=== PATIENT | male | born 1995 | race Two or more races ===

== ENCOUNTER 2016-11-11 13:44 | Emergency (ER) | payer SELFPAY ==
[2016-11-11 13:50] VITALS: BP 141/61
--- NOTE | 2016-11-11 14:32 | ER Document Report ---
ED Skin Rash/Insect Bite/Abscs - General Chief Complaint: Rash Stated Complaint: RASH,ITCHING Time Seen by Provider: 11/11/16 14:12 Mode of Arrival: Ambulatory Information source: Patient Notes: 21-year-old male presents to ED for exposure to poison oak. He has a rash to bilateral arms legs chest and abdomen. He states he has been using calamine lotion but has not been using Benadryl or any antihistamines. He states he has only been using calamine lotion. TRAVEL OUTSIDE OF THE [place] IN LAST 30 DAYS: No - HPI Patient complains to provider of: Other - Rash to bilateral arms legs chest and abdomen not severe minimal she states it itches very bad. Denies pain no redness or inflammation Onset: Other - 4 days Onset/Duration: Gradual Quality of pain: No pain Severity: None Pain Level: Denies Skin Character: Other - A itchy rash from poison oak to the arms legs chest and back Quality of rash: Itchy Identify cause: Yes - Heat patient states poison oak Exacerbated by: Denies Relieved by: Denies Similar symptoms previously: Yes Recently seen / treated by doctor: No - Related Data Allergies/Adverse Reactions: No Known Allergies Allergy (Verified 11/11/16 13:48) Past Medical History - General Information source: Patient - Social History Smoking Status: Never Smoker Cigarette use (# per day): No Chew tobacco use (# tins/day): No Smoking Education Provided: No Frequency of alcohol use: None Drug Abuse: None Occupation: Construction Lives with: Spouse/Significant other Family History: Arthritis, DM, Hypertension Patient has suicidal ideation: No Patient has homicidal ideation: No - Past Medical History Cardiac Medical History: Reports: Hx Hypertension Pulmonary Medical History: Reports: None EENT Medical History: Reports: None Neurological Medical History: Reports: None Endocrine Medical History: Reports: None Renal/ Medical History: Reports: None Malignancy Medical History: Reports None GI Medical History: Reports: None Musculoskeltal Medical History: Reports None Skin Medical History: Reports None Psychiatric Medical History: Reports: Hx Attention Deficit Hyperactivity Disorder, Hx Bipolar Disorder Traumatic Medical History: Reports: None Infectious Medical History: Reports: None Surgical Hx: Negative Past Surgical History: Reports: None - Immunizations Hx Diphtheria, Pertussis, Tetanus Vaccination: Yes Review of Systems - Review of Systems Constitutional: No symptoms reported EENT: No symptoms reported Cardiovascular: No symptoms reported Respiratory: No symptoms reported Gastrointestinal: No symptoms reported Genitourinary: No symptoms reported Male Genitourinary: No symptoms reported Musculoskeletal: No symptoms reported Skin: Rash Hematologic/Lymphatic: No symptoms reported Neurological/Psychological: No symptoms reported -: Yes All other systems reviewed and negative Physical Exam - Vital signs Vitals: Temp Pulse Resp BP Pulse Ox 97.7 F 58 L 14 141/61 H 98 11/11/16 13:49 11/11/16 13:49 11/11/16 13:49 11/11/16 13:49 11/11/16 13:49 Interpretation: Normal - General General appearance: Appears well, Alert - HEENT Head: Normocephalic, Atraumatic Eyes: Normal Pupils: PERRL - Respiratory Respiratory status: No respiratory distress Chest status: Nontender Breath sounds: Normal Chest palpation: Normal - Cardiovascular Rhythm: Regular Heart sounds: Normal auscultation Murmur: No - Abdominal Inspection: Normal Distension: No distension Bowel sounds: Normal Tenderness: Nontender Organomegaly: No organomegaly - Back Back: Normal, Nontender - Extremities General upper extremity: Normal inspection, Nontender, Normal color, Normal ROM , Normal temperature General lower extremity: Normal inspection, Nontender, Normal color, Normal ROM , Normal temperature, Normal weight bearing. No: Jordi's sign - Neurological Neuro grossly intact: Yes Cognition: Normal Orientation: AAOx4 Marc Coma Scale Eye Opening: Spontaneous Marc Coma Scale Verbal: Oriented [place] Coma Scale Motor: Obeys Commands [place] Coma Scale Total: 15 Speech: Normal Motor strength normal: LUE, RUE, LLE, RLE Sensory: Normal - Psychological Associated symptoms: Normal affect, Normal mood - Skin Skin Temperature: Warm Skin Moisture: Dry Skin Color: Normal Skin irregularity: Rash Location of irregularity: Abdomen, Chest, Back, Extremities Character of irregularity: Other - itchy red fine Course - Re-evaluation Re-evalutation: 11/11/16 14:51 Patient instructed in use of antihistamines, Pepcid, Caladryl lotion, and over- the-counter hydrocortisone. Patient to follow-up with primary doctor for any other complaints. - Vital Signs Vital signs: Temp Pulse Resp BP Pulse Ox 97.7 F 58 L 14 141/61 H 98 11/11/16 13:49 11/11/16 13:49 11/11/16 13:49 11/11/16 13:49 11/11/16 13:49 Discharge - Discharge Clinical Impression: Poison oak dermatitis Condition: Stable Disposition: HOME, SELF-CARE Instructions: Family Physicians / Practices Additional Instructions: [email or web address] Poison Melanie Poison melanie and poison oak can cause an itchy rash. This is called contact dermatitis. It's an allergy to an oil in the plant's leaves. The oil can be spread from clothing to skin, from pets to humans, or from one spot on the body to another. Washing thoroughly with soap immediately after exposure can prevent the rash. (Clothing should be washed as well.) If the oil is not removed, an itchy rash develops a few days after the exposure. Blisters may develop. Two to three weeks may be required for healing. Generally, treatment consists of: (1) an immediate thorough washing with soap to remove the oil, (2) application of a cortisone cream, and (3) antihistamines for itching. If the reaction is particularly severe, oral cortisone medicine may be required. If there are oozing areas, these can be soaked in epsom salts or Ravindra's solution. Call the doctor if the rash worsens despite treatment, or if signs of infection occur such as spreading redness, red streaks, swollen glands, swelling , or fever. STEROID MEDICATION: You have been given a medicine of the cortisone/steroid class. This medication is used to control inflammation or allergy. It is usually only given for a short period of time, until the acute process subsides. There are usually no side effects from short-term use of cortisone-like medications. Some persons feel an increased sense of well-being and are not sleepy at bedtime. Long-term use of cortisone medications is best avoided, unless required for a severe condition. If your condition does not remit, or relapses after the course of corticosteroid medication, you should consult your physician. ACID-SUPPRESSING MEDICATION: You have a prescription for medicine which reduces the stomach's secretion of acid. Examples include Zantac, Tagament, and Pepcid. These drugs are often used to allow healing of ulcers or esophagitis. They may be needed to prevent recurrence of ulcers in some patients, or to prevent damage from acid reflux in the esophagus. Take all medication as prescribed, even after the pain is gone. Regular antacids may be added as needed if you have symptoms while taking this medicine. These medications sometimes are prescribed for allergic reactions because they have anti-histaminic effects and relieve the rash and itching of the reaction. There are usually no side effects from this medication. But, in rare cases and particularly in the elderly, serious problems can occur. Contact your doctor if there is fever, rash, hallucinations, confusion, or unusual bruising. Contact your doctor at once if you develop lightheadedness, black or bloody stool, or bloody vomitus. ANTIHISTAMINES: An antihistamine has been given and/or prescribed to control your symptoms. Antihistamines are used for many reasons, including itching, watering eyes, runny nose, allergic swelling, hives, and insect stings. Antihistamines may cause drowsiness, especially with the first dose. Do not operate machinery or drive while under the effects of the medication. Other common side effects include dry mouth and eyes. In older persons, antihistamines can occasionally cause urinary retention, constipation, and trouble focusing the eyes. Do not combine the medication with alcohol, or with any other medication without talking to your doctor. USE OF DIPHENHYDRAMINE: The use of diphenhydramine (Benadryl) has been recommended to control allergic symptoms. The 25 mg strength is available over- the-counter, as well as the elixir. This antihistamine is used for many symptoms. It's useful for itching, watering eyes and nose, allergic swelling, hives, and insect stings. The medication can be repeated four times daily. Age Elixir (12.5 mg/tsp) 25 mg pill 2-3 yr 1/2 tsp 4-8 yr 1 tsp 9-14 yr 2 tsp one tab adult 1-2 tabs Antihistamines may cause drowsiness, especially with the first dose. Do not operate machinery or drive while under the effects of the medication. Do not combine the medication with alcohol, or with any other medication without talking to your doctor. FOLLOW-UP CARE: If you have been referred to a physician for follow-up care, call the physician s office for an appointment as you were instructed or within the next two days. If you experience worsening or a significant change in your symptoms, notify the physician immediately or return to the Emergency Department at any time for re-evaluation. Prescriptions: Prednisone [Deltasone 10 mg Tablet] 10 mg PO ASDIR PRN #21 tablet PRN Reason: Forms: Elevated Blood Pressure
== END 2016-11-11 14:40 | disposition home or self-care (01) ==
LOC: ER 13:44
DX: L25.5 Unspecified contact dermatitis due to plants, except food (principal); R21 Rash and other nonspecific skin eruption
CPT/HCPCS: 99282

== ENCOUNTER 2017-03-17 20:25 | Emergency (ER) | payer SELFPAY ==
--- NOTE | 2017-03-17 20:40 | ER Document Report ---
ED Psych Disorder / Suicide - General Chief Complaint: Psych Problem Stated Complaint: SUICIDAL IDEATIONS Time Seen by Provider: 03/17/17 20:39 Notes: 21-year-old male history of depression. Used to be on several medications. Has not taken anything in a long time. Has been having increased thoughts of suicide. I thought about hanging himself in the past. Was admitted to mental health hospital in the past. States that he has lost his Medicaid as well as his disability. Has not been able to get his medications refilled. Can get an appointment with the doctor because he does not have any money. Admits to self- medicating with marijuana TRAVEL OUTSIDE OF THE [place] IN LAST 30 DAYS: No - HPI Patient complains to provider of: Suicidal ideation Onset was: Gradual Severity: Moderate - Related Data Allergies/Adverse Reactions: No Known Allergies Allergy (Verified 11/11/16 13:48) Past Medical History - General Information source: Patient - Social History Smoking Status: Current Every Day Smoker Cigarette use (# per day): Yes Frequency of alcohol use: None Drug Abuse: Marijuana Family History: Arthritis, DM, Hypertension - Past Medical History Cardiac Medical History: Reports: Hx Hypertension Renal/ Medical History: Denies: Hx Peritoneal Dialysis Psychiatric Medical History: Reports: Hx Attention Deficit Hyperactivity Disorder, Hx Bipolar Disorder - Immunizations Hx Diphtheria, Pertussis, Tetanus Vaccination: Yes Review of Systems - Review of Systems Constitutional: No symptoms reported EENT: No symptoms reported Cardiovascular: No symptoms reported Respiratory: No symptoms reported Gastrointestinal: No symptoms reported Genitourinary: No symptoms reported Male Genitourinary: No symptoms reported Musculoskeletal: No symptoms reported Skin: No symptoms reported Hematologic/Lymphatic: No symptoms reported Neurological/Psychological: See HPI, Depression, Suicidal ideation Physical Exam - Vital signs Vitals: Temp Pulse Resp BP Pulse Ox 98.1 F 87 18 144/73 H 98 03/17/17 20:32 03/17/17 20:32 03/17/17 20:32 03/17/17 20:32 03/17/17 20:32 Interpretation: Normal - General General appearance: Appears well, Alert Notes: In no major distress at this time. - HEENT Head: Normocephalic, Atraumatic Eyes: Normal Pupils: PERRL - Respiratory Respiratory status: No respiratory distress Chest status: Nontender Breath sounds: Normal Chest palpation: Normal - Cardiovascular Rhythm: Regular Heart sounds: Normal auscultation Murmur: No - Abdominal Inspection: Normal Distension: No distension Bowel sounds: Normal Tenderness: Nontender Organomegaly: No organomegaly - Back Back: Normal, Nontender - Extremities General upper extremity: Normal inspection, Nontender, Normal color, Normal ROM , Normal temperature General lower extremity: Normal inspection, Nontender, Normal color, Normal ROM , Normal temperature, Normal weight bearing. No: Jordi's sign - Neurological Neuro grossly intact: Yes Cognition: Normal Orientation: AAOx4 Marc Coma Scale Eye Opening: Spontaneous Marc Coma Scale Verbal: Oriented Marc Coma Scale Motor: Obeys Commands [place] Coma Scale Total: 15 Speech: Normal Motor strength normal: LUE, RUE, LLE, RLE Sensory: Normal - Psychological Associated symptoms: Normal affect, Normal mood - Skin Skin Temperature: Warm Skin Moisture: Dry Skin Color: Normal Course - Re-evaluation Re-evalutation: 03/17/17 21:39 This 21-year-old pleasant well-appearing male in no acute distress at this time. Reports not being on medications and has gotten worse. Patient wants to be on medications that will help with the suicidal ideations because he is tired of having these thoughts of wanting to . At this time patient is medically stable. Will place in observation overnight and have mental health see patient in the morning. - Vital Signs Vital signs: Temp Pulse Resp BP Pulse Ox 98.1 F 87 18 144/73 H 98 03/17/17 20:32 03/17/17 20:32 03/17/17 20:32 03/17/17 20:32 03/17/17 20:32 - Laboratory Result Diagrams: 03/17/17 21:06 03/17/17 21:06 Laboratory results interpreted by me: 03/17/17 03/17/17 03/17/17 20:41 21:06 21:06 WBC 11.3 H Absolute Neutrophils 8.3 H Potassium 3.5 L Glucose 112 H Total Protein 6.1 L Urine Urobilinogen 2.0 H Ur Leukocyte Esterase TRACE H Salicylates < 1.0 L Acetaminophen < 10 L Discharge - Discharge Clinical Impression: Depressive disorder, Suicidal ideation
[2017-03-17 21:12] LABS: ABSOLUTE BASOPHILS # (AUTO) 0.1 10^3/uL (0.0-0.2); ABSOLUTE EOSINOPHILS # (AUTO) 0.1 10^3/uL (0.0-0.6); ABSOLUTE LYMPHOCYTES (AUTO) 2.2 10^3/uL (0.5-4.7); ABSOLUTE MONOCYTES (AUTO) 0.6 10^3/uL (0.1-1.4); ABSOLUTE NEUT (AUTO) 8.3 10^3/uL (1.7-8.2); BASOPHILS % (AUTO) 0.9 % (0-2); EOSINOPHILS % (AUTO) 0.6 % (0-6); HEMATOCRIT 47.1 % (37.9-51.0); HEMOGLOBIN 16.3 g/dL (13.5-17.0); LYMPHOCYTES % (AUTO) 19.5 % (13-45); MEAN CORPUSCULAR HEMOGLOBIN 30.6 pg (27.0-33.4); MEAN CORPUSCULAR HGB CONC 34.6 g/dL (32.0-36.0); MEAN CORPUSCULAR VOLUME 89 fl (80-97); PLATELET COUNT 264 10^3/uL (150-450); RED BLOOD COUNT 5.31 10^6/uL (4.35-5.55); TOTAL CELLS COUNTED % (AUTO) 100 %; WHITE BLOOD COUNT 11.3 10^3/uL (4.0-10.5)
[2017-03-17 21:29] LABS: GLUCOSE 112 mg/dL (75-110)
[2017-03-17 21:30] LABS: ALANINE AMINOTRANSFERASE 46 U/L (21-72); ALBUMIN 4.2 g/dL (3.5-5.0); ALKALINE PHOSPHATASE 58 U/L (38-126); ANION GAP 9 (5-19); ASPARTATE AMINO TRANSFERASE 29 U/L (17-59); BILIRUBIN,DIRECT 0.1 mg/dL (0.0-0.4); BILIRUBIN,TOTAL 0.5 mg/dL (0.2-1.3); BLOOD UREA NITROGEN 16 mg/dL (7-20); CALCIUM 9.9 mg/dL (8.4-10.2); CARBON DIOXIDE 27 mmol/L (22-30); CHLORIDE 104 mmol/L (98-107); POTASSIUM 3.5 mmol/L (3.6-5.0); SODIUM 140.1 mmol/L (137-145); TOTAL PROTEIN 6.1 g/dL (6.3-8.2)
[2017-03-17 21:32] LABS: ACETAMINOPHEN < 10 ug/mL (10-30); ALCOHOL < 10 mg/dL (NONE DETECTED); SALICYLATE < 1.0 mg/dL (2.0-20.0)
[2017-03-17 22:05] LABS: APPEARANCE,URINE SLIGHTLY-CLOUDY; BILIRUBIN,URINE NEGATIVE (NEGATIVE); COLOR,URINE YELLOW; GLUCOSE, URINE NEGATIVE (NEGATIVE); KETONES,URINE NEGATIVE (NEGATIVE); LEUKOCYTE ESTERASE,URINE TRACE (NEGATIVE); NITRITE,URINE NEGATIVE (NEGATIVE); PROTEIN,URINE NEGATIVE (NEGATIVE)
[2017-03-17 22:21] LABS: URINE AMPHETAMINES SCREEN NEGATIVE; URINE BARBITURATES SCREEN NEGATIVE; URINE BENZODIAZEPINES SCREEN NEGATIVE; URINE COCAINE SCREEN NEGATIVE; URINE MARIJUANA (THC) SCREEN UNCONFIRMED POSITIVE; URINE METHADONE SCREEN NEGATIVE; URINE PHENCYCLIDINE SCREEN NEGATIVE
--- NOTE | 2017-03-17 23:09 | EKG REPORT ---
SEVERITY:- OTHERWISE NORMAL ECG - SINUS ARRHYTHMIA, RATE [id number] : Confirmed by: Mya Cao 17-Mar-2017 23:08:25
--- NOTE | 2017-03-18 11:01 | ER Document Report ---
Doctor's Note Notes: 03/18/17 11:00 Rounds: Chart reviewed and patient interviewed. Patient is being evaluated for depression and suicidal ideation. Says he has had these feelings for some time now. Does not have a suicidal plan. Patient is very polite. Vital signs are all normal. Lab studies were normal except for being positive marijuana on his drug screen. Patient appears to be medically stable for transfer or discharge. Redd Jules MD
--- NOTE | 2017-03-18 11:34 | PSYCHOLOGICAL NOTE ---
Psych Note - Psych Note Psych Note: Reason for Consult: Suicidal Ideation Consent Permissions : none Given 21-year-old male history of depression. Used to be on several medications. Has not taken anything in a long time. Has been having increased thoughts of suicide. I thought about hanging himself in the past. Was admitted to mental health hospital in the past. States that he has lost his Medicaid as well as his disability. Patient disclosed that he has been having suicidal thoughts for approximately 6 months however denies having a plan. He states that he did attempt last year " I put a rope on a tree but could not go through with it." Patient states that he has had one inpatient psychiatric treatment at [facility] approximately 4-5 years ago. Patient denies taking any medications for over 2 years; does not remember what medications he was taking. Patient states "I would like to start medication again." Patient describes having difficulty sleeping, reporting only 2-3 hours of sleep at night. Patient also has difficulty with anger at times and periods of times where he "sometimes have a hard time getting out of bed." Patient is alert and orientated to person, place, time and circumstance. Mood is euthymic with congruent affect. Patient endorses passive suicidal ideation i.e. no plans means or intent. Patient denies homicidal ideation. Delusions are absent behaviors congruent with intact reality based presentation i.e. organized, linear, rational thinking. Eye contact was well-maintained. Intellectual abilities appear to be within the average range. Conversational speech was within normal rate, tone and prosody. Attention and concentration were good. Insight, judgment, impulse control are good as evidenced by the patient coming in to the emergency department seeking assistance. 296.80 (F31.9) unspecified bipolar and related disorder Impression\\plan: Patient is considered psychiatrically clear. Patient does not meet IVC criteria per [place] GS 122C. Patient endorses passive suicidal ideation i.e. no plans means nor intent. Patient denies homicidal ideation. Delusions are absent behaviors congruent with intact reality based presentation i.e. organized, linear, rational thinking. Patient is requesting assistance in medication and continued services. Patient is recommended to follow-up with [facility] for his continued outpatient mental health treatment. Dr. Reaves was consulted and the care and management of this patient; attending physician is in agreement with recommendations and disposition.
[2017-03-18 13:16] VITALS: BP 126/76
== END 2017-03-18 13:21 | disposition home or self-care (01) ==
LOC: ER 20:25
DX: F31.9 Bipolar disorder, unspecified (principal); R45.851 Suicidal ideations; F17.210 Nicotine dependence, cigarettes, uncomplicated; F12.10 Cannabis abuse, uncomplicated; I10 Essential (primary) hypertension
CPT/HCPCS: 36415; 80053; 80307; 81001; 85025; 93005; 93010; 99285

== ENCOUNTER 2017-03-23 08:48 | Emergency (ER) | payer SELFPAY ==
--- NOTE | 2017-03-23 09:26 | ER Document Report ---
ED General - General Chief Complaint: Medication Refill Stated Complaint: MEDICATION REFILL Time Seen by Provider: 03/23/17 09:25 Mode of Arrival: Ambulatory Information source: Patient Notes: Patient is a 21-year-old male who presents requesting medication refill for his Depakote. He was seen here 5 days ago with passive suicidal ideations but he is denying any suicidal ideations homicidal ideations or hallucinations at this time. He states that he was discharged home from his previous visit and advised to follow-up outpatient. He has an appointment with an outpatient psychiatric provider on April 05 but he states that the time of his discharge from the emergency department he was only given 5 days worth of the Depakote. He states he is going to need some more until he can make his appointment on April 05. He is unsure of the dosage of the Depakote but states his pharmacy is [facility] on [address]. TRAVEL OUTSIDE OF THE [place] IN LAST 30 DAYS: No - Related Data Allergies/Adverse Reactions: No Known Allergies Allergy (Verified 11/11/16 13:48) Past Medical History - General Information source: Patient - Social History Smoking Status: Unknown if Ever Smoked Family History: Arthritis, DM, Hypertension - Past Medical History Cardiac Medical History: Reports: Hx Hypertension Renal/ Medical History: Denies: Hx Peritoneal Dialysis Psychiatric Medical History: Reports: Hx Attention Deficit Hyperactivity Disorder, Hx Bipolar Disorder - Immunizations Hx Diphtheria, Pertussis, Tetanus Vaccination: Yes Review of Systems - Review of Systems Constitutional: No symptoms reported EENT: No symptoms reported Cardiovascular: No symptoms reported Respiratory: No symptoms reported Gastrointestinal: No symptoms reported Genitourinary: No symptoms reported Male Genitourinary: No symptoms reported Musculoskeletal: No symptoms reported Skin: No symptoms reported Hematologic/Lymphatic: No symptoms reported Neurological/Psychological: No symptoms reported Physical Exam - Vital signs Vitals: Temp Pulse Resp BP Pulse Ox 98.1 F 73 18 125/70 96 03/23/17 08:56 03/23/17 08:56 03/23/17 08:56 03/23/17 08:56 03/23/17 08:56 - Notes Notes: PHYSICAL EXAM: CONSTITUTIONAL: Alert and oriented, well-appearing and in no acute distress. HENT: Normocephalic, atraumatic. Trachea midline. Uvula midline. Moist mucous membranes. EYES: Pupils equal round and reactive to light, EOM intact. Sclera anicteric, conjunctiva are normal. No entrapment. NECK: supple without lymphadenopathy. No midline tenderness or paraspinous muscle spasms. No step-offs or deformities. ROM intact. HEART: Regular rate and rhythm without murmurs. LUNGS: CTAB and equal. No wheezes, rales or rhonchi. GI: Normactive bowel sounds. Nontender, non-distended. No organomegaly. no CVAT. EXTREMITIES: Normal range of motion, no pitting edema. No cyanosis. Cap Refill < 3 seconds. NEURO: Cranial nerves grossly intact. Normal sensory/motor exams. PSYCH: Normal mood, normal affect. No suicidal ideations, homicidal ideations, hallucinations. SKIN: Warm and dry. Normal turgor. No rashes or lesions noted. Course - Re-evaluation Re-evalutation: 03/23/17 09:26 Patient seen and examined. He is denying any homicidal ideations, suicidal ideations or hallucinations. He states that while on the Depakote his depression seem to be controlled which is why he is requesting medication refills. I discussed case with psych triage nurse who reviewed patient's medical records and states that it is okay for him to get a medication refill until his next appointment. Will prescribe this medication. They confirmed he was on Depakote 500 mg ER 1 tablet twice daily. At this time, will discharge with return precautions and follow-up recommendations. Verbal discharge instructions given at the bedside and opportunity for questions given. Medication warnings reviewed. Patient is in agreement with this plan and has verbalized understanding of return precautions and the need for primary care follow-up in the next 24-72 hours. - Vital Signs Vital signs: Temp Pulse Resp BP Pulse Ox 98.1 F 73 18 125/70 96 03/23/17 08:56 03/23/17 08:56 03/23/17 08:56 03/23/17 08:56 03/23/17 08:56 Discharge - Discharge Condition: Stable Disposition: HOME, SELF-CARE Additional Instructions: Follow-up with your outpatient provider as directed on April 05. Return if your symptoms worsen. Prescriptions: Divalproex Sodium [Depakote ER] 500 mg PO BID #[id number] Referrals: JANIYA PATEL MD [Primary Care Provider] - Follow up as needed
[2017-03-23 10:30] VITALS: BP 121/76
== END 2017-03-23 10:30 | disposition home or self-care (01) ==
LOC: ER 08:48
DX: Z76.0 Encounter for issue of repeat prescription (principal); Z79.899 Other long term (current) drug therapy
CPT/HCPCS: 99281

== ENCOUNTER 2017-11-05 19:09 | Emergency (ER) | payer SELFPAY ==
[2017-11-05] MEDS ORDERED: LIDOCAINE 1% INJ-PF (10 MG/ML) 30 ML SDV INJ ONE (21:33)
[2017-11-05] MEDS ORDERED: CEFTRIAXONE INJ 250 MG VIAL IM ONE (21:33)
[2017-11-05] MEDS ORDERED: AZITHROMYCIN 250 MG TABLET PO ONE (21:34)
--- NOTE | 2017-11-05 21:51 | ER Document Report ---
HPI - HPI Pain Level: Denies Notes: Patient presents with chief complaint of STD exposure. Patient reports his girlfriend was tested positive for chlamydia and gonorrhea. Patient denies any history of sexually transmitted diseases. Patient does report that he has occasionally been having a discharge from his penis. Past Medical History - General Information source: Patient - Social History Smoking Status: Never Smoker Frequency of alcohol use: None Drug Abuse: None Family History: Arthritis, DM, Hypertension - Past Medical History Cardiac Medical History: Reports: Hx Hypertension Renal/ Medical History: Denies: Hx Peritoneal Dialysis Psychiatric Medical History: Reports: Hx Attention Deficit Hyperactivity Disorder, Hx Bipolar Disorder - Immunizations Hx Diphtheria, Pertussis, Tetanus Vaccination: Yes Vertical Provider Document - CONSTITUTIONAL Notes: PHYSICAL EXAMINATION: GENERAL: Well-appearing, well-nourished and in no acute distress. HEAD: Atraumatic, normocephalic. EYES: Pupils equal round extraocular movements intact, conjunctiva are normal. ENT: Nares patent, oropharynx erythematous with mild tonsillar swelling. NECK: Normal range of motion LUNGS: No respiratory distress Musculoskeletal: Normal range of motion NEUROLOGICAL: Normal speech, normal gait. PSYCH: Normal mood, normal affect. SKIN: Warm, Dry, normal turgor, no rashes or lesions noted. - INFECTION CONTROL TRAVEL OUTSIDE OF THE [place] IN LAST 30 DAYS: No Course - Re-evaluation Re-evalutation: Patient will be medicated for gonorrhea and chlamydia as he reports his partner just tested positive. Will also treat patient for possible strep throat as patient reports he has had a sore throat for several days, reports history of strep and states that he always tests negative. - Vital Signs Vital signs: Temp Pulse Resp BP Pulse Ox 98.2 F 54 L 16 141/70 H 99 11/05/17 19:26 11/05/17 19:26 11/05/17 19:26 11/05/17 19:26 11/05/17 19:26 Discharge - Discharge Clinical Impression: Exposure to STD Condition: Stable Disposition: HOME, SELF-CARE Additional Instructions: You have been treated today for chlamydia and gonorrhea. Please abstain from any sexual intercourse for 2 weeks. Please follow-up with the health department , they can retest you in 2-3 weeks to make sure any infection has cleared up. Referrals: [facility] [Outside] - Follow up as needed
[2017-11-05] MEDS ORDERED: PENICILLIN G BENZATHINE 1.2 MILLION UNIT/2 ML DISP.SYRIN IM ONE (21:52)
[2017-11-05 23:08] VITALS: BP 127/67
== END 2017-11-05 23:07 | disposition home or self-care (01) ==
LOC: ER 19:09
DX: Z20.2 Contact with and (suspected) exposure to infections with a predominantly sexual mode of transmission (principal); I10 Essential (primary) hypertension
CPT/HCPCS: 99283; 96372; J3490; J0561; J0696

== ENCOUNTER 2018-02-02 17:40 | Emergency (ER) | payer SELFPAY ==
[2018-02-02] MEDS ORDERED: ONDANSETRON 4 MG TAB.RAPDIS PO ONE (18:25)
[2018-02-02] MEDS ORDERED: MAG HYDROX/AL HYDROX/SIMETH SUSP 30 ML UDCUP PO ONE (18:26)
[2018-02-02] MEDS ORDERED: LIDOCAINE 2% VISCOUS SOLN 20 ML UDCUP PO ONE (18:26)
--- NOTE | 2018-02-02 18:27 | ER Document Report ---
ED Medical Screen (RME) - General Chief Complaint: Abdominal Pain Stated Complaint: VOMITING,HEADACHE Time Seen by Provider: 02/02/18 18:20 Mode of Arrival: Ambulatory Information source: Patient Notes: Patient presents complaining of nausea vomiting diarrhea for the past 2 days. Patient states that he has upper abdominal pain that goes into his chest. Patient reports mild cough. Patient denies any fever. Patient also complains of headache pain. I have greeted and performed a rapid initial assessment of this patient. A comprehensive ED assessment and evaluation of the patient, analysis of test results and completion of the medical decision making process will be conducted by additional ED providers. TRAVEL OUTSIDE OF THE [place] IN LAST 30 DAYS: No - Related Data Allergies/Adverse Reactions: No Known Allergies Allergy (Verified 02/02/18 17:40) Past Medical History - Past Medical History Cardiac Medical History: Reports: Hx Hypertension Renal/ Medical History: Denies: Hx Peritoneal Dialysis Psychiatric Medical History: Reports: Hx Attention Deficit Hyperactivity Disorder, Hx Bipolar Disorder - Immunizations Hx Diphtheria, Pertussis, Tetanus Vaccination: Yes Physical Exam - Vital signs Vitals: Temp Pulse Resp BP Pulse Ox 98.5 F 61 20 149/83 H 100 02/02/18 17:51 02/02/18 17:51 02/02/18 17:51 02/02/18 17:51 02/02/18 17:51 - Abdominal Tenderness: Tender - Epigastric Course - Vital Signs Vital signs: Temp Pulse Resp BP Pulse Ox 98.5 F 61 20 149/83 H 100 02/02/18 17:51 02/02/18 17:51 02/02/18 17:51 02/02/18 17:51 02/02/18 17:51
--- NOTE | 2018-02-02 18:49 | RADIOLOGY REPORT (SQ) ---
EXAM DESCRIPTION: CHEST 2 VIEWS COMPLETED DATE/TIME: 02/02/2018 6:40 pm REASON FOR STUDY: cp COMPARISON: None. EXAM PARAMETERS: NUMBER OF VIEWS: two views TECHNIQUE: Digital Frontal and Lateral radiographic views of the chest acquired. RADIATION DOSE: NA LIMITATIONS: none FINDINGS: LUNGS AND PLEURA: No opacities, masses or pneumothorax. No pleural effusion. MEDIASTINUM AND HILAR STRUCTURES: No masses or contour abnormalities. HEART AND VASCULAR STRUCTURES: Heart normal size. No evidence for failure. BONES: No acute findings. HARDWARE: None in the chest. OTHER: No other significant finding. IMPRESSION: NO ACUTE RADIOGRAPHIC FINDING IN THE CHEST. TECHNICAL DOCUMENTATION: JOB ID: [id number] [employer]- All Rights Reserved Reading location - IP/workstation name: [email or web address]
[2018-02-02 19:40] LABS: ABSOLUTE BASOPHILS # (AUTO) 0.1 10^3/uL (0.0-0.2); ABSOLUTE EOSINOPHILS # (AUTO) 0.1 10^3/uL (0.0-0.6); ABSOLUTE MONOCYTES (AUTO) 0.9 10^3/uL (0.1-1.4); ABSOLUTE NEUT (AUTO) 7.5 10^3/uL (1.7-8.2); BASOPHILS % (AUTO) 1.2 % (0-2); EOSINOPHILS % (AUTO) 0.8 % (0-6); HEMATOCRIT 47.1 % (37.9-51.0); HEMOGLOBIN 16.5 g/dL (13.5-17.0); LYMPHOCYTES % (AUTO) 18.9 % (13-45); MEAN CORPUSCULAR HEMOGLOBIN 30.9 pg (27.0-33.4); MEAN CORPUSCULAR HGB CONC 35.1 g/dL (32.0-36.0); MEAN CORPUSCULAR VOLUME 88 fl (80-97); MONOCYTES % (AUTO) 8.3 % (3-13); PLATELET COUNT 286 10^3/uL (150-450); RED BLOOD COUNT 5.35 10^6/uL (4.35-5.55); RED CELL DISTRIBUTION WIDTH 13.1 % (11.5-14.0); SEGMENTED NEUTROPHILS % (AUTO) 70.8 % (42-78); TOTAL CELLS COUNTED % (AUTO) 100 %; WHITE BLOOD COUNT 10.6 10^3/uL (4.0-10.5)
[2018-02-02 20:00] LABS: ALANINE AMINOTRANSFERASE 44 U/L (21-72); ALBUMIN 4.7 g/dL (3.5-5.0); ALKALINE PHOSPHATASE 81 U/L (38-126); ANION GAP 12 (5-19); ASPARTATE AMINO TRANSFERASE 29 U/L (17-59); BILIRUBIN,DIRECT 0.1 mg/dL (0.0-0.4); BILIRUBIN,TOTAL 0.5 mg/dL (0.2-1.3); BLOOD UREA NITROGEN 17 mg/dL (7-20); CALCIUM 10.3 mg/dL (8.4-10.2); CARBON DIOXIDE 25 mmol/L (22-30); CHLORIDE 105 mmol/L (98-107); GLUCOSE 107 mg/dL (75-110); LIPASE 31.7 U/L (23-300); POTASSIUM 4.5 mmol/L (3.6-5.0); SODIUM 142.2 mmol/L (137-145); TOTAL PROTEIN 7.4 g/dL (6.3-8.2)
--- NOTE | 2018-02-02 21:23 | ER Document Report ---
ED GI/ - General Chief Complaint: Abdominal Pain Stated Complaint: VOMITING,HEADACHE Time Seen by Provider: 02/02/18 18:20 Mode of Arrival: Ambulatory Information source: Patient Notes: 22-year-old male presented to ED for complaint of nausea vomiting and diarrhea for the last 2 days. He stated he was not able to keep anything down and that he had abdominal pain that went into the epigastric area. He was seen as triaged by Andrey Mjeia NP. She gave him a GI cocktail and Zofran. He states he has not had any nausea or vomiting since she gave him this medication and that he was feeling much better. TRAVEL OUTSIDE OF THE [place] IN LAST 30 DAYS: No - HPI Patient complains to provider of: Abdominal pain, Vomiting Onset: Other - 2 days Timing/Duration: Better Quality of pain: Burning, Other - Mild burning to the epigastric area Severity at maximum: Severe Severity in ED: Almost gone Pain Level: 1 Location: Epigastric Associated symptoms: Diarrhea, Nausea, Vomiting Exacerbated by: Denies Relieved by: Other - Dates seen nausea medicine and GI cocktail have greatly improved his pain and he is no longer nauseated Similar symptoms previously: Yes Recently seen / treated by doctor: No - Related Data Allergies/Adverse Reactions: No Known Allergies Allergy (Verified 02/02/18 17:40) Past Medical History - General Information source: Patient - Social History Smoking Status: Never Smoker Cigarette use (# per day): No Chew tobacco use (# tins/day): No Smoking Education Provided: No Frequency of alcohol use: None Drug Abuse: Marijuana Lives with: Family Family History: Arthritis, DM, Hypertension Patient has suicidal ideation: No Patient has homicidal ideation: No - Past Medical History Cardiac Medical History: Reports: Hx Hypertension Pulmonary Medical History: Reports: None EENT Medical History: Reports: None Neurological Medical History: Reports: None Endocrine Medical History: Reports: None Renal/ Medical History: Reports: None Malignancy Medical History: Reports None GI Medical History: Reports: None Musculoskeletal Medical History: Reports None Skin Medical History: Reports None Psychiatric Medical History: Reports: Hx Attention Deficit Hyperactivity Disorder, Hx Bipolar Disorder Traumatic Medical History: Reports: None Infectious Medical History: Reports: None Surgical Hx: Negative Past Surgical History: Reports: None - Immunizations Immunizations up to date: Yes Hx Diphtheria, Pertussis, Tetanus Vaccination: Yes Review of Systems - Review of Systems Constitutional: Recent illness EENT: No symptoms reported Cardiovascular: No symptoms reported Respiratory: No symptoms reported Gastrointestinal: Abdominal pain, Diarrhea, Nausea, Vomiting Genitourinary: No symptoms reported Male Genitourinary: No symptoms reported Musculoskeletal: No symptoms reported Skin: No symptoms reported Hematologic/Lymphatic: No symptoms reported Neurological/Psychological: No symptoms reported -: Yes All other systems reviewed and negative Physical Exam - Vital signs Vitals: Temp Pulse Resp BP Pulse Ox 98.5 F 61 20 149/83 H 100 02/02/18 17:51 02/02/18 17:51 02/02/18 17:51 02/02/18 17:51 02/02/18 17:51 Interpretation: Normal - General General appearance: Appears well, Alert - HEENT Head: Normocephalic, Atraumatic Eyes: Normal Pupils: PERRL - Respiratory Respiratory status: No respiratory distress Chest status: Nontender Breath sounds: Normal Chest palpation: Normal - Cardiovascular Rhythm: Regular Heart sounds: Normal auscultation Murmur: No - Abdominal Inspection: Normal Distension: No distension Bowel sounds: Normal Tenderness: Tender. No: McBurney's point - Epigastric area, Mcgowan's sign, Guarding, Rebound Organomegaly: No organomegaly - Back Back: Normal, Nontender - Extremities General upper extremity: Normal inspection, Nontender, Normal color, Normal ROM , Normal temperature General lower extremity: Normal inspection, Nontender, Normal color, Normal ROM , Normal temperature, Normal weight bearing. No: Jordi's sign - Neurological Neuro grossly intact: Yes Cognition: Normal Orientation: AAOx4 [place] Coma Scale Eye Opening: Spontaneous [place] Coma Scale Verbal: Oriented Marc Coma Scale Motor: Obeys Commands Marc Coma Scale Total: 15 Speech: Normal Motor strength normal: LUE, RUE, LLE, RLE Sensory: Normal - Psychological Associated symptoms: Normal affect, Normal mood - Skin Skin Temperature: Warm Skin Moisture: Dry Skin Color: Normal Course - Re-evaluation Re-evalutation: 02/03/18 01:49 Patient was able to eat crackers and drink water with no difficulty and no nausea or vomiting. Patient states he was feeling much better and was ready to go home. Patient was discharged home with a prescription for Zofran and instructed to return to the emergency room for any return of nausea or vomiting or diarrhea. Patient instructed to follow-up with his primary doctor or return to the ED for any increase in symptoms. - Vital Signs Vital signs: Temp Pulse Resp BP Pulse Ox 97.6 F 54 L 20 125/82 100 02/02/18 21:25 02/02/18 21:30 02/02/18 17:51 02/02/18 21:25 02/02/18 21:25 - Laboratory Result Diagrams: 02/02/18 19:25 02/02/18 19:25 Laboratory results interpreted by me: 02/02/18 02/02/18 19:25 19:25 WBC 10.6 H Calcium 10.3 H - Diagnostic Test Radiology reviewed: Image reviewed, Reports reviewed Discharge - Discharge Clinical Impression: Nausea, vomiting and diarrhea Condition: Stable Disposition: HOME, SELF-CARE Instructions: Family Physicians / Practices Additional Instructions: VOMITING: Vomiting (or nausea without vomiting) can be caused by many other different problems. It can mean that something's wrong with the stomach, such as ulcers or inflammation or the intestinal tract, such as appendicitis. But it can also be a symptom of a problem that has nothing to do with the stomach or intestines. Vomiting is common with severe headaches, earaches, tonsillitis, and kidney infections, etc. We see it with pneumonia or heart attacks. Drugs can cause nausea and vomiting. Many abdominal problems cause vomiting; for example, gallstones, kidney stones, pancreatitis, and intestinal obstruction ( blocked bowels). In most cases, curing the vomiting depends on fixing the problem that caused it. For temporary relief, we may use an anti-nausea medicine. For home use, we can prescribe suppositories, chewable pills, pills that dissolve in the mouth, or liquid anti-nausea drugs. If the vomiting seems to be caused by a problem in the stomach, acid-suppressing drugs may be prescribed as well. It's important to avoid dehydration. Sip small amounts of clear liquids ( soft drinks, tea, broth, etc) . Try to take fluids frequently even if you are vomiting to prevent dehydration. Take increasing amounts of fluid and when liquids are being consumed successfully, advance to small amounts of bland food (toast, soups, mashed potatoes, etc.) until you are able to resume a regular diet. Avoid aspirin, tobacco, and alcohol. If the vomiting worsens, if the problem that's making you vomit worsens, or if there's evidence of bleeding in the stomach (such as black, tarry stool, or bloody or black vomit), you should return immediately. Also, return if abdominal pain worsens or becomes localized to one area or you develop high fever. Call your doctor if you aren't improved in 24 hours. DIARRHEA, NON-SPECIFIC: Diarrhea means frequent, watery stools. There are many causes. Any problem that keeps the intestinal tract from absorbing water from the stool can lead to diarrhea. A sudden new diarrhea problem is usually caused by a virus, food sensitivity, toxic bacteria, or drugs. In this case, we expect the problem to go away soon. Testing is done only if you seem seriously ill from the diarrhea. If you have chronic diarrhea, or diarrhea that keeps coming back, we need to find out why. Chronic diarrhea can be due to inflammation of the bowels such as Crohn's disease or ulcerative colitis, food sensitivity such as intolerance to lactose or wheat protein, irritable bowel syndrome, and other problems. If your diarrhea is a significant problem but it's not clear why you have it, we' ll refer you to a specialist for further testing. During an episode of diarrhea, drink small amounts (two to six ounces) of clear liquids (soft drinks, sport drinks, herb teas, broth, etc). Take fluids frequently to prevent dehydration. It's usually not a problem to take mild anti- diarrhea medication such as Kaopectate or Pepto-Bismol. As the diarrhea eases, advance to small amounts of bland food (mashed potato, toast) for 24 hours. Call the physician if blood appears in your vomit or stool, if vomiting lasts longer than 24 hours, if the abdominal pain worsens or becomes localized to one area, if you develop high fever, or if you become lightheaded and weak. VIRAL SYNDROME: The physician has diagnosed a viral infection. Viruses not only cause "colds," but can cause many different symptoms including generalized aching, fever, headache, cough, diarrhea, nausea, vomiting, and fatigue. The treatment, for the most part, is simply relief of symptoms. This means that antibiotics are usually not given. Rest, fluids, pain medications and, occasionally, medication for the specific symptoms that are most bothersome will be prescribed. Use good handwashing to avoid passing the virus to others. Shared toys should be cleaned with disinfectant. Clean the toilets, sinks, and counter surfaces in bathrooms. Launder clothing in hot water. Contact the physician if you develop any new or unusual symptoms such as severe headache, stiff neck, high fever, chest pain, productive cough, or shortness of breath. You should be rechecked if you don't see marked improvement within seven to 10 days. ANTINAUSEA MEDICATION: You have been given a medication to suppress nausea and vomiting. This type of medication can be given as a shot, pill, or suppository. It will usually last for many hours. Pills and shots usually last six to eight hours. For the typical illness, only one or two doses of the medication may be necessary. Mild lightheadedness may occur. This type of medicine can cause drowsiness. Do not drive or operate dangerous machinery while under its influence. Do not mix with alcohol. See your doctor at once if you have muscle spasms or tightness, or uncontrollable motions (particularly of the neck, mouth, or jaw). Persistent vomiting or severe lightheadedness should also be evaluated by the physician. FOLLOW-UP CARE: If you have been referred to a physician for follow-up care, call the physician s office for an appointment as you were instructed or within the next two days. If you experience worsening or a significant change in your symptoms, notify the physician immediately or return to the Emergency Department at any time for re-evaluation. Prescriptions: Ondansetron [Zofran Odt 4 mg Tablet] 1 tab PO Q6H #15 tab.rapdis Forms: Elevated Blood Pressure, Return to Work
[2018-02-02 21:27] VITALS: BP 125/82
== END 2018-02-02 21:30 | disposition home or self-care (01) ==
LOC: ER 17:40
DX: R11.2 Nausea with vomiting, unspecified (principal); R19.7 Diarrhea, unspecified; R10.13 Epigastric pain; I10 Essential (primary) hypertension; F12.10 Cannabis abuse, uncomplicated
CPT/HCPCS: 99284; 36415; 83690; 85025; 80053; 71046; S0119; J3490

== ENCOUNTER 2019-01-10 09:02 | Emergency (ER) | payer OTHER ==
[2019-01-10 09:12] VITALS: BP 145/74
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
== END 2019-01-10 09:40 | disposition home or self-care (01) ==
LOC: ER 09:02
DX: Z04.1 Encounter for examination and observation following transport accident (principal); I10 Essential (primary) hypertension